=== PATIENT | female | born 1990 | race Hispanic/Latino ===

== ENCOUNTER 2017-07-03 22:20 | Emergency (ER) | payer SELFPAY ==
[2017-07-03 22:38] VITALS: TEMP 99.2
--- NOTE | 2017-07-03 22:39 | ED.PDOC ---
History of Present Illness - General Chief Complaint: Behavioral / Psych Stated Complaint: anxiety, headache, vaginal discharge Time Seen by Provider: 07/03/17 22:38 Source: patient, RN notes reviewed Exam Limitations: no limitations - History of Present Illness Initial Comments: Susi Fong 27 y/o female stated that she stopped her anxiety medication clonazepam 0.5 mg tid after she had positive test done 3 days ago at home. and today felt more anxious,jittery.Also she has vaginal discharge,no uterine contraction or vaginal bleeding,no abdominal pain.Stated quit taking her anxiety medication that it may harm the baby.She also goes for counseling. Timing/Duration: other - 3 days ago Severity: moderate Episode Description: see hpi Associated Symptoms: anxiety Allergies/Adverse Reactions: Allergies NO KNOWN ALLERGY Allergy (Verified 07/03/17 22:38) Home Medications: Ambulatory Orders Nitrofurantoin Monohydrate Mac [Macrobid] 100 mg PO BID #14 cap 07/03/17 Review of Systems - Review of Systems Constitutional: States: no symptoms reported EENTM: States: no symptoms reported Respiratory: States: no symptoms reported Cardiology: States: no symptoms reported Gastrointestinal/Abdominal: States: no symptoms reported Genitourinary: States: no symptoms reported Neurological: States: see HPI, anxiety Past Medical History (General) - Patient Medical History Hx Seizures: No Hx Stroke: No Hx Dementia: No Hx Asthma: No Hx of COPD: No Hx Cardiac Disorders: No Hx Congestive Heart Failure: No Hx Pacemaker: No Hx Hypertension: No Hx Thyroid Disease: No Hx Diabetes: No Hx Gastroesophageal Reflux: No Hx Renal Disease: No Hx Cancer: No Hx of HIV: No Hx Hepatitis C: No Surgical History: no surgical history - Vaccination History Hx Tetanus, Diphtheria Vaccination: No Hx Influenza Vaccination: No Immunizations Up to Date: No - Social History Hx Tobacco Use: No Hx Chewing Tobacco Use: No Hx Alcohol Use: No Hx Substance Use: No Hx Substance Use Treatment: No Hx Depression: No Feels Threatened In Home Enviroment: No Feels Threatened In a Relationship: No Hx Physical Abuse: No Hx Emotional Abuse: No Hx Suspected Abuse: No - Activities of Daily Living Patient Lives Alone: No - family - Female History Patient is a Female of Child Bearing Age (10 -59 yrs old): Yes - [id number] Hx Last Menstrual Period: 05/24/17 Patient : Yes Expected Date of Delivery:: 03/01/18 Family Medical History - Family History Mother Family History: No Known Physical Exam - Physical Exam General Appearance: Alert, Comfortable, No apparent distress Eyes, Ears, Nose, Throat Exam: PERRL/EOMI, normal ENT inspection Neck: non-tender, supple Respiratory: lungs clear, normal breath sounds Cardiovascular/Chest: normal peripheral pulses, regular rate, rhythm, no murmur Gastrointestinal/Abdominal: non tender, soft, other - pelvic exam- cervix closed thick white vaginal discharge Neurological: alert, normal mood/affect, calm, oriented x 3 Appearance: appropriate appearance Behavior/Eye Contact/Speech: cooperative Thoughts/Hallucinations: normal thought pattern Progress - Progress Progress: 07/03/17 23:14 Vital Signs - 8 hr 07/03/17 22:21 Temperature 99.2 F Pulse Rate [ 94 H monitor] Respiratory 16 Rate Blood Pressure 144/79 [Right Arm] O2 Sat by Pulse 97 Oximetry - Results/Orders Results/Orders: Laboratory Tests 07/03/17 07/03/17 22:50 22:50 Urine Color Yellow Urine Appearance Sl cloudy Urine pH 6.0 Ur Specific [place] 1.020 Urine Protein Negative Urine Glucose (UA) Negative Urine Ketones Negative Urine Blood Trace-lysed H Urine Nitrite Negative Urine Bilirubin Negative Urine Urobilinogen 1.0 Ur Leukocyte Esterase Moderate H Urine RBC 0-1 Urine WBC 30-40 H Ur Epithelial Cells 5-10 Urine Bacteria 1+ Urine Mucus Trace Urine Yeast Rare Urine HCG, Qual Positive no clue cells Departure - Departure Clinical Impression: Amenorrhea, secondary, Anxiety, Leukorrhea, not specified as infective Qualifiers: Weeks of gestation: less than 8 weeks Qualified Code(s): Z3A.01 - Less than 8 weeks gestation of Urinary tract infection Qualifiers: Urinary tract infection type: site unspecified Hematuria presence: without hematuria Qualified Code(s): N39.0 - Urinary tract infection, site not specified Time of Disposition: 23:49 Disposition: Discharge to Home or Self Care Condition: Good Departure Forms: ED Discharge - Pt. Copy, Patient Portal Self Enrollment Referrals: TORRIE LINDER [Primary Care Provider] - 1-2 Weeks Prescriptions: Nitrofurantoin Monohydrate Mac [Macrobid] 100 mg PO BID #14 cap Home Medications: Ambulatory Orders Nitrofurantoin Monohydrate Mac [Macrobid] 100 mg PO BID #14 cap 07/03/17 Additional Instructions: FOLLOW UP WITH YOU BANKER MASON YANIRA CALL FOR APPOINTMENT IN AM
[2017-07-03] MEDS ORDERED: NITROFURANTOIN MONO (ER DISP) 100 MG CAP PO ONE (23:55)
[2017-07-03] MEDS ORDERED: NITROFURANTOIN MONOHYDRATE MAC 100 MG CAP PO ONE (23:55)
[2017-07-04] MEDS ORDERED: PROMETHAZINE TAB (ER DISP) 25 MG TAB PO ONE (00:05)
[2017-07-04] MEDS ORDERED: PROMETHAZINE TAB (ER DISP) 25 MG TAB ONE (00:07)
[2017-07-04 00:14] VITALS: BP 116/70; O2SAT 100
== END 2017-07-04 00:14 | disposition home or self-care (01) ==
LOC: ER 22:20
DX: O23.41 Unspecified infection of urinary tract in pregnancy, first trimester (principal); N89.8 Other specified noninflammatory disorders of vagina; O99.341 Other mental disorders complicating pregnancy, first trimester; F41.9 Anxiety disorder, unspecified; Z3A.08 8 weeks gestation of pregnancy
CPT/HCPCS: 81001; 81025; 87086; 87210; Q0169